=== PATIENT | female | born 1985 | race Caucasian/White ===

== ENCOUNTER 2016-09-16 05:31 | Day surgery (SDC) | payer MEDICAID ==
[2016-09-14 12:47] LABS: BASOPHILS 0.3 % (0.0-2.0); HEMATOCRIT 43.9 % (36.0-48.0); HEMOGLOBIN 14.6 g/dL (12-16); IMMATURE GRANULOCYTES 0.1 % (0-5); LYMPHOCYTES 40.8 % (15-50); MCH 28.6 pg (26.0-34.0); MCHC 33.3 g/dL (31.0-37.0); MCV 86.1 fL (80.0-100.0); MONOCYTES 5.7 % (2-11); NEUTROPHILS 50.1 % (40-80); RDW 13.3 % (11.5-14.5)
[2016-09-14 12:58] LABS: PLATELET COUNT 227 10x3/uL (130-400)
[~2016-09-16] VITALS: Ht 157.5 cm; Wt 47.2 kg
[~2016-09-16 05:31] MED LIST: CYCLOBENZAPRINE10 MG PO; HYDROCODON-ACE1 EAC7 PO; IBUPROFEN600 MG PO; PRENATAL COMPLE1 TAB PO; PROMETRIUM200 MG PO; ZOFRAN ODT4 MG/UDTAB PO
[2016-09-16 08:01] VITALS: BP 99/62; Ht 157.5 cm; Wt 47.2 kg
[2016-09-16 08:28] LABS: HCG URINE NEGATIVE (NEGATIVE)
--- NOTE | 2016-09-16 14:15 | NUR ---
DISCHARGED HOME VIA .
--- NOTE | 2016-09-22 12:41 | OP ---
PATIENT NAME: HUE NUGENT MEDICAL RECORD: [id number] :83 [facility] ADMISSION DATE: SURGEON: MELVIN GONCALVES MD DATE OF OPERATION: 09/16/2016 PREOPERATIVE DIAGNOSES: Multiparity, patient desires permanent sterility and high-grade cervical dysplasia. POSTOPERATIVE DIAGNOSES: Multiparity, patient desires permanent sterility and high-grade cervical dysplasia. PROCEDURE: Tubal ligation using bipolar cautery and loop electrosurgical excision procedure. SURGEON: Melvin Goncalves MD ESTIMATED BLOOD LOSS: Minimal. INTRAVENOUS FLUIDS: Per anesthesia records. SPECIMENS: Cervical cone biopsy. COMPLICATIONS: None apparent. FINDINGS: 1. Grossly normal-appearing uterus, fallopian tubes and ovaries. 2. Grossly normal appearing cervix. DESCRIPTION OF THE PROCEDURE: The patient was taken to the operating room, where general anesthesia was achieved without difficulty. The patient was then prepped and draped in normal sterile fashion in the dorsal lithotomy position in the [facility]. The vagina was prepped and the bladder was straight catheterized for approximately 20 cc of clear yellow urine. At this point, attention was turned to the abdomen where a 5-mm incision was made in the umbilicus and using the 11 blade and the bladeless trocar was then used to enter the intraperitoneal space under direct visualization of the laparoscope. Following removal of the introducer and insufflation, intraperitoneal placement was confirmed with the laparoscope. A second 5-mm skin incision was made approximately 4 cm above the pubic symphysis in the midline. Another bladeless trocar was then inserted into the abdomen under direct visualization of the laparoscope. Anatomy was surveyed. The uterus and tubes were identified and approximately 5 cm portion of the fallopian tubes were completely desiccated using the Gyrus bipolar cautery. This was done bilaterally and good hemostasis was noted. Following the tubal ligation, the patient was then desufflated and the skin repaired with 3-0 Monocryl in interrupted fashion. Attention was then turned to the vagina, where the sponge stick which had been used to elevate the uterus during the laparoscopy was removed and the insulated speculum was placed in the vagina and cervix was identified. The loop electrosurgical excision procedure was then performed at approximately 7-8 mm in depth portion of the cervical canal and ectocervix was removed. Areas of small bleeding were then cauterized using the Bovie cautery. Good hemostasis was then noted and Toby solution was placed on the cervical crater. Counts were correct times 2. The patient tolerated the procedure well, transferred to postanesthesia recovery stable without incident. OPERATIVE REPORT [id number] RAFFIHUE CJ TRANSINT:[id number] Voice Confirmation ID: [id number] DOCUMENT ID: [id number] MELVIN GONCALVES MD at 1240 CC: [id number] DICTATION DATE: 09/16/16 1152 [employer] CONVEYOR LINE: 09/16/16 1206 [facility] [address] [place] [address]
== END 2016-09-16 14:15 | disposition home or self-care (01) ==
LOC: D.OPS 05:31 → D.PAN 09:00 → D.OPS 10:15
PROVIDERS: Obstetrics & Gynecology
DX: Z30.2 Encounter for sterilization (principal); D06.0 Carcinoma in situ of endocervix; N72 Inflammatory disease of cervix uteri; N88.8 Other specified noninflammatory disorders of cervix uteri

== ENCOUNTER → 2020-05-19 09:12 | Outpatient (CLI) | payer MEDICAID ==
[2016-09-16 08:01] VITALS: BMI 19.0
== END | disposition home or self-care (01) ==
LOC: D.US 09:12
PROVIDERS: ATTEND Obstetrics & Gynecology
DX: N63.11 Unspecified lump in the right breast, upper outer quadrant (principal)

== ENCOUNTER 2020-06-13 05:00 | Day surgery (SDC) | payer MEDICAID ==
[2020-06-11 14:24] LABS: BASOPHILS 0.3 % (0-2); EOSINOPHILS 2.3 % (0-7); HEMATOCRIT 43.5 % (36.0-48.0); HEMOGLOBIN 14.8 g/dL (12-16); IMMATURE GRANULOCYTES 0.2 % (0-5); LYMPHOCYTES 26.9 % (15-50); MCH 31.6 pg (26.0-34.0); MCV 92.8 fL (80.0-100.0); MONOCYTES 5.4 % (2-11); NEUTROPHILS 64.9 % (40-80); PLATELET COUNT 272 10x3/uL (130-400); RBC 4.69 10x6/uL (4.00-5.40); RDW 13.2 % (11.5-14.5); WBC 11.7 10x3/uL (4.8-10.8)
[2020-06-11 14:59] LABS: CALC OSMOLALITY 276 mosm/kg (275-300); CALCIUM 9.2 mg/dL (8.5-10.1); CARBON DIOXIDE 25.3 mmol/L (21.0-32.0); CHLORIDE - SERUM 103 mmol/L (98-107); CREATININE - SERUM 0.7 mg/dL (0.6-1.3); GLUCOSE 98 mg/dL (74-106); POTASSIUM - SERUM 3.7 mmol/L (3.5-5.1); SODIUM 140 mmol/L (136-145); UREA NITROGEN 8 mg/dL (7-18); eGFR NON AFRICAN AMERICAN > 90 mL/min (90-120)
[~2020-06-13] VITALS: Ht 162.6 cm; Wt 42.2 kg
[2020-06-13 05:42] VITALS: BP 99/68; Ht 162.6 cm; Wt 42.2 kg
[2020-06-13 06:47] LABS: HCG URINE NEGATIVE (NEGATIVE)
--- NOTE | 2020-06-13 10:34 | NUR ---
1035 IV REMOVED AND PT TOLERATING FOOD WELL. MEDICATED FOR PAIN
--- NOTE | 2020-06-16 14:09 | OP ---
PATIENT NAME: HUE NUGENT MEDICAL RECORD: [id number] :83 LOCATION:[facility] ADMISSION DATE: SURGEON: SAMSON CHAUHAN MD DATE OF OPERATION: 06/13/2020 PREOPERATIVE DIAGNOSES: 1. Bilateral breast fibroadenomas. 2. Tobacco dependence syndrome. POSTOPERATIVE DIAGNOSES: 1. Bilateral breast fibroadenomas. 2. Tobacco dependence syndrome. PROCEDURE: Bilateral lumpectomy. SURGEON: Samson Chauhan MD REPORT OF PROCEDURE: Preoperatively, the patient's breasts were marked with her assistance. The patient was taken to the operating room where bilateral breasts were prepped and draped in sterile fashion. The left side was approached first. A semicircular incision was made on the superior lateral aspect of the patient's nipple areolar complex. Electrocautery was used to dissect through the subcutaneous tissues and we dissected out to the palpable mass that was in the left upper outer quadrant. This mass was eviscerated through the wound and released from surrounding attachments using electrocautery. Any bleeding found was treated with electrocautery. We then irrigated out this wound with normal saline and assured there was no sign of any bleeding. The subcutaneous tissues were reapproximated with interrupted 3-0 Vicryl and the skin was closed with running subcutaneous 5-0 Monocryl. The right breast was then approached. This mass was a little bit more difficult to feel. A semicircular incision was made on the superior aspect of the nipple areolar complex. Electrocautery was used to dissect through the subcutaneous tissues. I was able to manipulate the tissues and find a small mass in the area where the patient had marked preoperatively. We eviscerated this tissue through the wound and I just took out a large core of tissue in the superior aspect of the breast in the 12 o'clock position. The subcutaneous tissues were irrigated out and any bleeding was treated with electrocautery. We then reapproximated the subcutaneous tissues with interrupted 3-0 Vicryl and the skin was closed with running subcutaneous 5-0 Monocryl. A total of 10 mL of 0.25% Marcaine with epinephrine was infused into the surrounding tissues. The wounds were dressed appropriately. COMPLICATIONS: None. CONDITION: Stable. ANESTHESIA: General endotracheal and local. BLOOD LOSS: 30 mL. TRANSINT:[id number] Voice Confirmation ID: [id number] DOCUMENT ID: [id number] OPERATIVE REPORT [id number] HUE NUGENT CHRISTIAN MD at 1409 CC: [id number] DICTATION DATE: 06/13/20 0858 ASSESSMENT EXPERT: 06/13/20 1034 [facility] 06/13/20 [place] [id number] [place] [id number]
== END 2020-06-13 11:15 | disposition home or self-care (01) ==
LOC: D.OPS 05:00 → D.PAN 08:00 → D.OPS 08:00
PROVIDERS: Surgery; ATTEND Obstetrics & Gynecology
DX: D24.1 Benign neoplasm of right breast (principal); D24.2 Benign neoplasm of left breast; R10.2 Pelvic and perineal pain; Z72.0 Tobacco use